=== PATIENT | female | born 1980 | race Two or more races ===

== ENCOUNTER 2019-01-18 10:16 | Emergency (ER) | payer MEDICAID ==
[~2019-01-18] VITALS: Ht 152.4 cm; Wt 57.2 kg
--- NOTE | 2019-01-18 10:22 | NUR ---
pt [id number], FROM HOME, PER BF SHE HAD A SEIZURE, BS 139, HR 120, +HEADACHE, pt is aaox4, not in respiratory distress, v/s stable, side rails padded, hooked to monitor, kept rested and comfortable.
--- NOTE | 2019-01-18 10:26 | NUR ---
urine specimen collected and sent to lab.
--- NOTE | 2019-01-18 10:30 | NUR ---
seen and examined by dr. guzman.
[2019-01-18 10:56] LABS: BASOPHILS % (AUTO) 0.3 % (0.0-2.0); EOSINOPHILS % (AUTO) 1.1 % (0.0-6.0); HEMATOCRIT 40 % (33-45); HEMOGLOBIN 13.6 g/dL (11.5-14.8); LYMPHOCYTES # (AUTO) 1.4 /CMM (0.8-4.8); MEAN CORPUSCULAR HGB CONC 34 g/dl (31.0-36.0); MEAN CORPUSCULAR VOLUME 88 fL (82-100); MONOCYTES # (AUTO) 0.3 /CMM (0.1-1.30); MONOCYTES % (AUTO) 6.1 % (2.0-12.0); NEUTROPHILS # (AUTO) 3.1 /CMM (1.8-8.9); NEUTROPHILS % (AUTO) 63.5 % (43.0-81.0); PLATELET COUNT (AUTO) 241 /CMM (150-450); RED BLOOD CELL COUNT(AUTO) 4.52 MIL/uL (4.0-5.2); WHITE BLOOD COUNT (AUTO) 4.8 K/uL (4.3-11.0)
[2019-01-18 11:10] LABS: CALCIUM, SERUM 8.7 mg/dL (8.5-10.1); CARBON DIOXIDE 26 mmol/L (21-32); CHLORIDE 105 mmol/L (98-107); CREATININE 0.6 mg/dL (0.6-1.3); GLUCOSE 96 mg/dL (74-106); POTASSIUM 4.2 mmol/L (3.5-5.1); SODIUM SERUM 138 mmol/L (136-145); UREA NITROGEN, BLOOD 12 mg/dL (7-18)
[2019-01-18 11:15] LABS: ALANINE AMINOTRANSFERASE 26 U/L (12-78); ALBUMIN 3.8 g/dL (3.4-5.0); ALCOHOL, BLOOD < 3 mg/dL (0-0); ALKALINE PHOSPHATASE 59 U/L (46-116); ASPARTATE AMINOTRANSFERASE 17 U/L (15-37); BILIRUBIN,DIRECT 0.1 mg/dL (0.0-0.2); BILIRUBIN,TOTAL 0.4 mg/dL (0.2-1.0)
[2019-01-18] MEDS ORDERED: ACETAMINOPHEN ES 500 MG TABLET ONE (11:56)
[2019-01-18] MEDS ORDERED: ACETAMINOPHEN 325 MG TABLET PO ONE (12:00)
[2019-01-18 13:00] VITALS: BP 122/82
--- NOTE | 2019-01-18 13:00 | NUR ---
IV removed. Catheter intact and site benign. Pressure and 4x4 applied to site. No bleeding noted. Patient discharged to home in stable condition. Written and verbal after care instructions given. Patient verbalizes understanding of instruction.
== END 2019-01-18 13:57 | disposition home or self-care (01) ==
LOC: ER 10:18
DX: R56.9 Unspecified convulsions (principal); F41.9 Anxiety disorder, unspecified; F32.9 Major depressive disorder, single episode, unspecified; F43.10 Post-traumatic stress disorder, unspecified
CPT/HCPCS: 36415; 70450; 80048; 80076; 80305; 80307; 84484; 84702; 85025; 93005; 99284; A4606; G0480